=== PATIENT | female | born 1985 | race Caucasian/White ===

== ENCOUNTER → 2020-06-15 | Outpatient (CLI) | payer OTHER ==
[~2020-06-15] MED LIST: AUGMENTIN 875-1 EACH PO; CORTISPORIN OTI10 ML EARLF; IBUPROFEN800 MG PO
[2020-06-15 13:48] LABS: HEMOGLOBIN 11.8 gm/dl (12.3-15.3); RED BLOOD COUNT 4.42 M/UL (4.00-5.10); WHITE BLOOD COUNT 7.4 K/UL (4.5-11.0)
[2020-06-15 14:25] LABS: BUN/CREATININE RATIO 8 (0-10)
== END ==
LOC: LAB 13:22
PROVIDERS: Family Medicine
DX: E55.9 Vitamin D deficiency, unspecified (principal); D64.9 Anemia, unspecified; R53.83 Other fatigue
CPT/HCPCS: 36415; 80053; 82607; 82728; 83540; 83550; 85025

== ENCOUNTER 2020-10-16 10:20 | Emergency (ER) | payer OTHER ==
[2020-10-16] MEDS ORDERED: CORTISPORIN OTI10 ML EARLF (11:00)
[2020-10-16] MEDS ORDERED: IBUPROFEN800 MG PO (11:02)
== END 2020-10-16 11:20 | disposition home or self-care (01) ==
LOC: ER1 10:20
DX: H60.92 Unspecified otitis externa, left ear (principal)
CPT/HCPCS: 99282

== ENCOUNTER 2020-10-18 12:24 | Emergency (ER) | payer OTHER ==
[~2020-10-18 12:24] MED LIST changes: -AUGMENTIN 875-1 EACH PO
[2020-10-18] MEDS ORDERED: AUGMENTIN 875-1 EACH PO (15:12)
== END 2020-10-18 15:25 | disposition home or self-care (01) ==
LOC: ER1 12:24
DX: H66.92 Otitis media, unspecified, left ear (principal)
CPT/HCPCS: 70450; 99283

== ENCOUNTER 2021-07-05 08:25 | Inpatient (IN) | payer OTHER ==
[~2021-07-05] VITALS: Ht 160 cm; Wt 58.1 kg
[~2021-07-05 08:25] MED LIST changes: +AUGMENTIN 875-1 EACH PO
[2021-07-05 09:53] LABS: BUN/CREATININE RATIO 7 (0-10)
[2021-07-05 09:56] LABS: HEMOGLOBIN 12.3 gm/dl (12.3-15.3); RED BLOOD COUNT 4.41 M/UL (4.00-5.10); WHITE BLOOD COUNT 5.7 K/UL (4.5-11.0)
[2021-07-05] MEDS ORDERED: LORATADINE10 MG PO (15:21)
[2021-07-05] MEDS ORDERED: AIMOVIG AU70 MG/1 ML SQ (15:21)
[2021-07-05] MEDS ORDERED: FLONASE 0.05% N16 GM (15:21)
[2021-07-06 03:56] LABS: HEMOGLOBIN 10.7 gm/dl (12.3-15.3); WHITE BLOOD COUNT 6.6 K/UL (4.5-11.0)
[2021-07-06 03:57] LABS: RED BLOOD COUNT 3.85 M/UL (4.00-5.10)
[2021-07-06 04:14] LABS: BUN/CREATININE RATIO 7 (0-10)
[2021-07-08] MEDS ORDERED: VALIUM 2 MG TAB2 MG PO (12:01)
[2021-07-08] MEDS ORDERED: MECLIZINE HCL25 MG PO (12:01)
[2021-07-08] MEDS ORDERED: OYSTER SHELL 51 EAC2 PO (12:05)
--- NOTE | 2021-07-08 17:47 | NUR ---
PT'S DISCHARGE ON HOLD AFTER THE LAURA MANEUVER WAS DONE BY PHYSICAL THERAPY SHE BECAME NAUSEOUS AND VOMITING. DR MILLS AWARE NEW ORDERS GIVEN AND DISCHARGE CANCELLED
== END 2021-07-10 11:49 | disposition home or self-care (01) | DRG 149 ==
LOC: ER1 08:25 → M/S 15:10 → CDU 15:10 → M/S 18:13
PROVIDERS: Physician Assistant Medical; ADMIT Internal Medicine Infectious Disease
PROC: B24BZZZ Ultrasonography of Heart with Aorta (ICD-10-PCS; principal; 2021-07-07)
DX: H81.13 Benign paroxysmal vertigo, bilateral (principal); I42.9 Cardiomyopathy, unspecified; R00.1 Bradycardia, unspecified; Z20.822 Contact with and (suspected) exposure to COVID-19; G43.909 Migraine, unspecified, not intractable, without status migrainosus; E83.51 Hypocalcemia; D32.0 Benign neoplasm of cerebral meninges; I10 Essential (primary) hypertension; Z98.891 History of uterine scar from previous surgery; Z83.3 Family history of diabetes mellitus; Z82.49 Family history of ischemic heart disease and other diseases of the circulatory system; Z80.9 Family history of malignant neoplasm, unspecified
CPT/HCPCS: ECHO; 36415; 70450; 70496; 70553; 71045; 80048; 80053; 81001; 82550; 82553; 83605; 83735; 84439; 84443; 84484; 84703; 85025; 85027; 93005; 93306; 96365; 97112; 97162; 97530; 99285; A9577; G0378; J0610; J2405; J7030; Q9967; U0002

== ENCOUNTER → 2021-07-25 | Outpatient (CLI) | payer OTHER ==
[~2021-07-25] MED LIST changes: +AIMOVIG AU70 MG/1 ML SQ; +FLONASE 0.05% N16 GM; +LORATADINE10 MG PO; +MECLIZINE HCL25 MG PO; +OYSTER SHELL 51 EAC2 PO; +VALIUM 2 MG TAB2 MG PO
[2021-07-25 17:31] LABS: HEMOGLOBIN 12.2 gm/dl (12.3-15.3); RED BLOOD COUNT 4.34 M/UL (4.00-5.10); WHITE BLOOD COUNT 9.2 K/UL (4.5-11.0)
[2021-07-25 17:49] LABS: BUN/CREATININE RATIO 13 (0-10)
== END ==
LOC: LAB 16:57
PROVIDERS: Family Medicine
DX: D64.9 Anemia, unspecified (principal); E55.9 Vitamin D deficiency, unspecified
CPT/HCPCS: 36415; 80053; 82607; 82728; 83540; 83550; 85025; 85045